=== PATIENT | male | born 1960 | race Caucasian/White ===

== ENCOUNTER → 2016-09-10 | Outpatient (CLI) | payer BC, OTHER ==
[2016-09-10 08:15] LABS: ABSOLUTE BASOPHILS # (AUTO) 0.1 10^3/uL (0.0-0.2); ABSOLUTE EOSINOPHILS # (AUTO) 0.3 10^3/uL (0.0-0.6); ABSOLUTE LYMPHOCYTES (AUTO) 1.5 10^3/uL (0.5-4.7); ABSOLUTE MONOCYTES (AUTO) 1.3 10^3/uL (0.1-1.4); ABSOLUTE NEUT (AUTO) 9.6 10^3/uL (1.7-8.2); BASOPHILS % (AUTO) 0.5 % (0-2); EOSINOPHILS % (AUTO) 2.3 % (0-6); HEMATOCRIT 44.3 % (37.9-51.0); HEMOGLOBIN 14.9 g/dL (13.5-17.0); HGB HCT DIFFERENCE 0.4; LYMPHOCYTES % (AUTO) 11.9 % (13-45); MEAN CORPUSCULAR HEMOGLOBIN 32.4 pg (27.0-33.4); MEAN CORPUSCULAR HGB CONC 33.7 g/dL (32.0-36.0); MEAN CORPUSCULAR VOLUME 96 fl (80-97); MONOCYTES % (AUTO) 10.5 % (3-13); SEGMENTED NEUTROPHILS % (AUTO) 74.8 % (42-78); WHITE BLOOD COUNT 12.8 10^3/uL (4.0-10.5)
[2016-09-10 08:25] LABS: APPEARANCE,URINE CLEAR; BILIRUBIN,URINE NEGATIVE (NEGATIVE); GLUCOSE, URINE NEGATIVE (NEGATIVE); KETONES,URINE NEGATIVE (NEGATIVE); LEUKOCYTE ESTERASE,URINE NEGATIVE (NEGATIVE); NITRITE,URINE NEGATIVE (NEGATIVE); PROTEIN,URINE NEGATIVE (NEGATIVE); URINE SPECIFIC GRAVITY 1.013; UROBILINOGEN,URINE NEGATIVE mg/dL (<2.0)
== END ==
LOC: LAB 13:53 → EDSTATUS 09-12 09:15
PROVIDERS: ATTEND Podiatrist Foot & Ankle Surgery
DX: M20.12 Hallux valgus (acquired), left foot (principal)
CPT/HCPCS: 36415; 81001; 85025

== ENCOUNTER → 2016-09-18 | Outpatient (CLI) | payer OTHER ==
[2016-09-18 10:35] LABS: ABSOLUTE EOSINOPHILS # (AUTO) 0.2 10^3/uL (0.0-0.6); ABSOLUTE LYMPHOCYTES (AUTO) 1.3 10^3/uL (0.5-4.7); ABSOLUTE NEUT (AUTO) 4.4 10^3/uL (1.7-8.2); BASOPHILS % (AUTO) 0.5 % (0-2); EOSINOPHILS % (AUTO) 2.6 % (0-6); HEMATOCRIT 43.2 % (37.9-51.0); HEMOGLOBIN 14.7 g/dL (13.5-17.0); HGB HCT DIFFERENCE 0.9; LYMPHOCYTES % (AUTO) 19.3 % (13-45); MEAN CORPUSCULAR HEMOGLOBIN 33.3 pg (27.0-33.4); MEAN CORPUSCULAR VOLUME 98 fl (80-97); MONOCYTES % (AUTO) 13.8 % (3-13); RED CELL DISTRIBUTION WIDTH 13.9 % (11.5-14.0); SEGMENTED NEUTROPHILS % (AUTO) 63.8 % (42-78); WHITE BLOOD COUNT 6.9 10^3/uL (4.0-10.5)
== END ==
LOC: OD 09:47
PROVIDERS: ATTEND Podiatrist Foot & Ankle Surgery
DX: Z01.812 Encounter for preprocedural laboratory examination (principal); M20.12 Hallux valgus (acquired), left foot
CPT/HCPCS: 36415; 85025

== ENCOUNTER 2016-09-26 07:58 | Day surgery (SDC) | payer OTHER ==
[~2016-09-26 07:58] MED LIST: BUPIVACAINE HCL 0.5 % INJ/PF 30 ML SDV ONE; CEFAZOLIN 1 GM/D5W RTU 1 GM/50 ML RTUPB IV PRN; DEXAMETHASONE SOD PHOS INJ 10 MG/1 ML VIAL ONE; FENTANYL CITRATE INJ/PF 100 MCG/2 ML AMPUL ONE; LIDOCAINE 2% INJ (20 MG/ML) 20 ML MDV ONE; LIDOCAINE 2% INJ-PF (20 MG/ML) 10 ML AMPUL ONE; MIDAZOLAM 2 MG/2 ML INJ ONE; ONDANSETRON HCL INJ/PF 4 MG/2 ML SDV ONE; PROPOFOL INJ 200 MG/20 ML VIAL IV ONE; RINGERS SOLUTION,LACTATED 1,000 ML IV PRN
[2016-09-26] MEDS ORDERED: MIDAZOLAM 2 MG/2 ML INJ ONE (09:02)
[2016-09-26] MEDS ORDERED: PROPOFOL INJ 200 MG/20 ML VIAL IV ONE (09:12)
[2016-09-26] MEDS ORDERED: EPHEDRINE SULFATE INJ 50 MG/1 ML AMPULE ONE (09:50)
[2016-09-26] MEDS ORDERED: CEFAZOLIN 1 GM/D5W RTU 1 GM/50 ML RTUPB IV ONE (11:33)
[2016-09-26] MEDS ORDERED: NORMAL SALINE FOR INHALATION 5 ML VIAL.NEB ONE (12:20)
[2016-09-26] MEDS ORDERED: RACEPINEPHRINE HCL 2.25% NEB 0.5 ML AMPUL NEB ONE (12:20)
[2016-09-26] MEDS: FENTANYL CITRATE INJ/PF 100 MCG/2 ML AMPUL ONE ×2 (12:55→13:08)
--- NOTE | 2016-09-26 13:51 | RADIOLOGY REPORT (SQ) ---
EXAM DESCRIPTION: CHEST PA/LATERAL COMPLETED DATE/TIME: 09/26/2016 1:42 pm REASON FOR STUDY: POST-OP R/O ASPIRATION/PNEUMONIA COMPARISON: CT chest 10/16/2015 Two-view chest 05/30/2014 EXAM PARAMETERS: NUMBER OF VIEWS: two views TECHNIQUE: Digital Frontal and Lateral radiographic views of the chest acquired. RADIATION DOSE: NA LIMITATIONS: none FINDINGS: LUNGS AND PLEURA: No opacities, masses or pneumothorax. No pleural effusion. MEDIASTINUM AND HILAR STRUCTURES: No masses or contour abnormalities. HEART AND VASCULAR STRUCTURES: Heart normal size. No evidence for failure. BONES: No acute findings. HARDWARE: None in the chest. OTHER: No other significant finding. IMPRESSION: NO SIGNIFICANT RADIOGRAPHIC FINDING IN THE CHEST. TECHNICAL DOCUMENTATION: JOB ID: [id number] [employer]- All Rights Reserved
--- NOTE | 2016-09-26 16:00 | RADIOLOGY REPORT (SQ) ---
EXAM DESCRIPTION: FOOT LEFT 2 VIEWS COMPLETED DATE/TIME: 09/26/2016 3:33 pm REASON FOR STUDY: LT FOOT OPEN WEDGE OSTEOTOMY M20.12 HALLUX VALGUS (ACQUIRED), LEFT FOOT COMPARISON: None. FLUOROSCOPY TIME: 0.09 seconds 2 images saved to PACS. TECHNIQUE: Intra-operative images acquired during surgical procedure to evaluate progress. NUMBER OF IMAGES: 2 image LIMITATIONS: None. FINDINGS: Fluoroscopic images were obtained during osteotomy involving the 1st digit and 1st metatar neftali of the left foot IMPRESSION: IMAGE(S) OBTAINED DURING PROCEDURE. COMMENT: Quality ID [id number]: Final reports for procedures using fluoroscopy that document radiation exp osure indices, or exposure time and number of fluorographic images (if radiation exposure indices are not available) Please consult full operative report of the attending physician for description of the procedure. TECHNICAL DOCUMENTATION: JOB ID: [id number] [employer]- All Rights Reserved
--- NOTE | 2016-09-26 16:02 | RADIOLOGY REPORT (SQ) ---
EXAM DESCRIPTION: NO CHG FLUORO COMPLETE DATE/TIME: 09/26/2016 3:33 pm REASON FOR STUDY: LT FOOT OPEN WEDGE OSTEOTOMY M20.12 HALLUX VALGUS (ACQUIRED), LEFT FOOT FINDINGS: Please see combined report for performance of procedure and radiologic supervision and int erpretation. IMPRESSION: Please see combined report for performance of procedure and radiologic supervision and i nterpretation.
--- NOTE | 2016-10-17 10:42 | SURGICARE OPERATIVE REPORT E ---
[facility] Operative Report NAME: TARAS JAMESON AGE: 56Y DATE OF SURGERY: 09/26/2016 ROOM: NOTE: I want this to be noted for the record that this is my second dictation on this operation report. PREOPERATIVE DIAGNOSIS: Severe hallux abductovalgus deformity, left foot. POSTOPERATIVE DIAGNOSIS: Severe hallux abductovalgus deformity, left foot. SURGEON: CALVIN CASTILLO D.P.M. PROCEDURES: OWO base, 1st metatarsal, Left hallux CWO base proximal Phalanx, Left Hallux FINDINGS: Severe dislocation of the first metatarsophalangeal joint with hypertrophy of the medial eminence of the head of the first metatarsal. Articular facets were relatively in a good condition with very minimal erosion of the articular cartilage. The left hallux was also in an advanced valgus rotation. Intraoperative findings were confirmed clinically and radiographically. PROCEDURE: With the patient laying in a dorsal recumbent position, the left foot and leg were prepped and draped in the usual standard sterile orthopedic manner after local anesthesia was administered which was a total ankle block. After the anesthetic effect was accomplished the left leg was elevated for approximately 2 minutes of time and the left ankle pneumatic tourniquet was inflated up to 250 mmHg after the blood was exsanguinated from the left foot. The left leg was brought to the level of the table. Attention was directed right over the first metatarsophalangeal joint. A curvilinear incision was placed right over the joint. The initial incision was deepened. The superficial and deep subcutaneous tissues were dissected via sharp and blunt dissection. This dissection was carried until the capsular structures were brought into the surgical field. By this time all bleeders were ligated, all vital structures were identified and protected from surgical trauma. Next an L inverted capsulotomy was performed over the first metatarsophalangeal joint with the long arm of the L inverted capsulotomy being medial and adjacent to the extensor hallucis longus tendon and the short arm running right over the joint in a medial inferior direction. Capsular and periosteal structures were dissected off bone. The head of the first metatarsal was brought into the surgical field and the hypertrophic portion of the medial eminence was resected and then the head was remodeled to a more normal anatomical configuration. At this point the skin incision was extended all the way down to the junction of the first metatarsal base with the medial cuneiform. Again, superficial and deep subcutaneous tissues were dissected via blunt and sharp dissection and the periosteal tissue at the base of the first metatarsal was brought into the surgical field. At this point the periosteal tissue was dissected off bone and the base of the first metatarsal was visualized. The open wedge osteotomy was performed at this area. This was an oblique osteotomy with the obliquity from medial proximal to lateral distal direction. The obliquity was about 45 degrees to the long axis of the first metatarsal. The measurements were transferred to the bone in order to create the orientation of the osteotomy cut. It was 1.5 cm from the joint on the medial side of the cortex and 0.5 cm from the joint on the lateral cortex. Next, the osteotomy was performed to dorsoplantar direction after the guiding pin was introduced the medial two thirds into the bone from dorsoplantar direction. Once the osteotomy was completed the attempt was started to open the osteotomy in order to derotate the first metatarsal laterally. Several attempts were made to create the open wedge and these attempts continued until we could open the wedge in order to fit a 5-mm wedge plate. Once the plate was introduced into the osteotomy it was anchored down with 4 screws, 2 distal to the open wedge and 2 proximal to the open wedge. All holes were predrilled with a 2-mm drill bit and the screws were 3 mm in diameter. The 2 screws introduced on the proximal aspect were 30 mm in length and those were locking screws. The screws introduced on the distal aspect of the open wedge were also locking screws. The proximal to the wedge screw was 14 mm in length. The distal screw to the osteotomy was 10 mm in length. Evaluation of the osteotomy was performed. It was a very solid fixation at this point. Next, attention was directed to the left hallux which continued to be still in a valgus rotation and the decision was made to perform an Darryl osteotomy at the base of the proximal phalanx. The first cut was parallel to the long axis of the proximal phalanx. The second cut was angulated in relationship to the first. The angulation was sufficient by closing the osteotomy to derotate the hallux into a more rectus position. After the osteotomy was completed and the closing wedge osteotomy was performed, it was fixated with 8-mm EV clip-shaped fixator. The fixation was extremely satisfactory at this point. Next, the surgical areas were irrigated with copious amounts of sterile saline solution. The open wedge at the base of the first metatarsal was packed with Vitoss 1.2 synthetic bone graft. After that the capsular structures around the first metatarsophalangeal joint were closed with 2-0 Vicryl. The deep and superficial tissues to the proximal aspect of the surgical incision were closed with 3-0 Vicryl. The subcutaneous tissues deep to superficial over the osteotomy performed at the base of the proximal phalanx were closed with 3-0 Vicryl. The skin edges were repositioned and anchored down with 4-0 nylon continuous interlocked stitch. A Betadine compression dressing was applied around the surgical area and this followed with [id number] posterior splint. This patient tolerated the procedures well and left the operating room with stable vital signs and in good condition. The patient was taken to the recovery room alert, conscious and oriented. There are no permanent disabilities at this time. The patient was discharged home with postoperative instructions. The patient was allowed to resume normal dieting and to be totally nonweightbearing, ambulating only with crutches. DICTATING PHYSICIAN: CALVIN CASTILLO D.P.M. [id number] PHY#: [id number] ID: [id number] JOB#: [id number] ACCT: [id number] cc:CALVIN CASTILLO D.P.M. > MTDD
== END 2016-09-26 13:55 | disposition home or self-care (01) ==
LOC: SC 07:58
PROVIDERS: ATTEND Podiatrist Foot & Ankle Surgery
PROC: 0QSR04Z Reposition Left Toe Phalanx with Internal Fixation Device, Open Approach (ICD-10-PCS; 2016-09-26)
PROC: 0QSP04Z Reposition Left Metatarsal with Internal Fixation Device, Open Approach (ICD-10-PCS; principal; 2016-09-26 10:15)
DX: M20.12 Hallux valgus (acquired), left foot (principal); J45.909 Unspecified asthma, uncomplicated; K21.9 Gastro-esophageal reflux disease without esophagitis; I10 Essential (primary) hypertension; M10.9 Gout, unspecified; F41.9 Anxiety disorder, unspecified; Z88.8 Allergy status to other drugs, medicaments and biological substances; Z79.899 Other long term (current) drug therapy
CPT/HCPCS: 71020; 73620; 28296; 28298; C1713; J2250; J3490 ×5; J0690; J3010; J2405; J2704; J1100; 01480

== ENCOUNTER 2017-04-22 15:46 | Emergency (ER) | payer OTHER ==
--- NOTE | 2017-04-22 16:30 | ER Document Report ---
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 He was sober for 4 months, but relapsed a few days ago. He drinks about 1/5 of vodka every night and when he is drinking, he is telling his that he is having thoughts of hurting himself. He took 5 Valium last night, but he is unsure if it was a suicide attempt or because he wanted to intensify the effects of his alcohol. Patient currently denies any suicidal ideation. His outpatient therapist is switching him from Lexapro to another anti-depressant. Patient denies ever withdrawing from alcohol and denies tremors, chest pain, shortness of breath, seizures, homicidal ideation, hallucinations, fevers or rash. TRAVEL OUTSIDE OF THE [place] IN LAST 30 DAYS: No - Related Data Allergies/Adverse Reactions: snake bite antivenom Adverse Reaction (Intermediate, Uncoded 05/30/14 19:08) Hives Past Medical History - General Information source: Patient - Social History Smoking Status: Unknown if Ever Smoked Frequency of alcohol use: Heavy Drug Abuse: None Family History: Reviewed & Not Pertinent - Past Medical History Cardiac Medical History: Reports: Hx Hypertension - MEDS Denies: Hx Heart Attack Pulmonary Medical History: Denies: Hx Asthma Neurological Medical History: Denies: Hx Cerebrovascular Accident, Hx Seizures GI Medical History: Reports: Hx Hiatal Hernia, Hx Ulcer - CHRON'S. Denies: Hx Hepatitis Infectious Medical History: Denies: Hx Hepatitis Past Surgical History: Reports: Hx Bowel Surgery. Denies: Hx Open Heart Surgery , Hx Pacemaker - Immunizations Hx Diphtheria, Pertussis, Tetanus Vaccination: No Review of Systems - Review of Systems Notes: REVIEW OF SYSTEMS: CONSTITUTIONAL: -fevers, -chills EENT: -eye pain, -difficulty swallowing, -nasal congestion CARDIOVASCULAR:-chest pain, -syncope. RESPIRATORY: -cough, -SOB GASTROINTESTINAL: -abdominal pain, - nausea, -vomiting, -diarrhea GENITOURINARY: -dysuria, -hematuria MUSCULOSKELETAL: -back pain, -neck pain SKIN: -rash or skin lesions. HEMATOLOGIC: -easy bruising or bleeding. LYMPHATIC: -swollen, enlarged glands. NEUROLOGICAL: -altered mental status or loss of consciousness, -headache, - neurologic symptoms PSYCHIATRIC: -anxiety, +depression. ALL OTHER SYSTEMS REVIEWED AND NEGATIVE. Physical Exam - Vital signs Vitals: Temp Pulse Resp BP Pulse Ox 98.5 F 57 L 16 150/92 H 95 04/22/17 15:51 04/22/17 15:51 04/22/17 15:51 04/22/17 15:51 04/22/17 15:51 - Notes Notes: PHYSICAL EXAMINATION: GENERAL: Well-appearing, well-nourished and in no acute distress. HEAD: Atraumatic, normocephalic. EYES: Pupils equal round and reactive to light, extraocular movements intact, sclera anicteric, conjunctiva are normal. ENT: nares patent, oropharynx clear without exudates. Moist mucous membranes. NECK: Normal range of motion, supple without lymphadenopathy LUNGS: Breath sounds clear to auscultation bilaterally and equal. No wheezes rales or rhonchi. HEART: Regular rate and rhythm without murmurs ABDOMEN: Soft, nontender, normoactive bowel sounds. No guarding, no rebound. No masses appreciated. EXTREMITIES: Normal range of motion, no pitting or edema. No cyanosis. NEUROLOGICAL: Cranial nerves grossly intact. Normal speech, normal gait. Normal sensory and motor exams. PSYCH: Normal mood, normal affect. SKIN: Warm, Dry, normal turgor, no rashes or lesions noted. Course - Re-evaluation Re-evalutation: Patient has never had any alcohol withdrawal seizures, but will monitor due to his daily drinking. Mental health evaluate patient and there is no criteria for IVC at this time. Will watch patient overnight and help him obtain voluntary alcohol detox. Patient is comfortable with this plan. - Vital Signs Vital signs: Temp Pulse Resp BP Pulse Ox 98.5 F 57 L 16 150/92 H 95 04/22/17 15:51 04/22/17 15:51 04/22/17 15:51 04/22/17 15:51 04/22/17 15:51 - Laboratory Result Diagrams: 04/22/17 16:44 04/22/17 16:44 Laboratory results interpreted by me: 04/22/17 04/22/17 16:44 16:44 RDW 14.9 H Alkaline Phosphatase 130 H Salicylates < 1.0 L Acetaminophen < 10 L Discharge - Discharge Clinical Impression: Alcohol abuse, Depressed mood Condition: Stable Disposition: PSYCH HOSP/UNIT Additional Instructions: ACUTE ALCOHOL INTOXICATION and ALCOHOL ABUSE: Your evaluation revealed very high levels of alcohol. You can from drinking a large amount of alcohol rapidly! Further, there's the risk of falls , traffic accidents, and fights. A high portion (about 50 percent) of the serious injuries seen in hospital emergency rooms are caused by alcohol. Alcohol overdosage is usually due to an underlying emotional or psychiatric problem. You may benefit from counselling. If "binge" drinking is an ongoing problem for you, or if you drink ANY AMOUNT of alcohol EVERY day, you most likely have a tendency to alcoholism. You should avoid alcohol totally. We can refer you for treatment. Persons with alcohol problems are often also prone to other addictions -- you should discuss any use of medications or drugs with the doctor. You should be watched at home for the next several hours by someone who has not been drinking. Get extra fluids for the next 24 hours. Call the doctor if there is repeated vomiting, increasing headache, decreasing level of alertness, or any other worsening. CHRONIC ALCOHOLISM and ALCOHOL ABUSE: Your evaluation reveals evidence of chronic alcoholism, an addiction to alcohol. The tendency to alcoholism may be inherited. Chronic use of alcohol weakens muscles, causes fatty deposits in the liver , damages the stomach, makes you more prone to infections, and can cause defects in unborn children. In the long run, brain atrophy and cirrhosis of the liver result. You are also at greater risk for certain types of cancer, such as cancer of the mouth, throat, stomach, and liver. Counselling services are available to help you. In-hospital treatment programs often help. Support groups such as Alcoholics Anonymous can be very useful in beating this addiction. Your physician can make a referral for you. As alcoholics often are prone to other addictions, you should discuss your use of any other medications with the doctor. FOLLOW-UP CARE: If you have been referred to a physician for follow-up care, call the physician s office for an appointment as you were instructed or within the next two days. If you experience worsening or a significant change in your symptoms, notify the physician immediately or return to the Emergency Department at any time for re-evaluation. Referrals: [facility] [Outside] - Follow up as needed
[2017-04-22 16:52] LABS: APPEARANCE,URINE CLEAR; BILIRUBIN,URINE NEGATIVE (NEGATIVE); GLUCOSE, URINE NEGATIVE (NEGATIVE); KETONES,URINE NEGATIVE (NEGATIVE); LEUKOCYTE ESTERASE,URINE NEGATIVE (NEGATIVE); NITRITE,URINE NEGATIVE (NEGATIVE); PROTEIN,URINE NEGATIVE (NEGATIVE); URINE SPECIFIC GRAVITY 1.008; UROBILINOGEN,URINE NEGATIVE mg/dL (<2.0)
[2017-04-22 16:57] LABS: ABSOLUTE BASOPHILS # (AUTO) 0.1 10^3/uL (0.0-0.2); ABSOLUTE EOSINOPHILS # (AUTO) 0.2 10^3/uL (0.0-0.6); ABSOLUTE LYMPHOCYTES (AUTO) 1.6 10^3/uL (0.5-4.7); ABSOLUTE MONOCYTES (AUTO) 0.8 10^3/uL (0.1-1.4); ABSOLUTE NEUT (AUTO) 6.1 10^3/uL (1.7-8.2); BASOPHILS % (AUTO) 0.6 % (0-2); EOSINOPHILS % (AUTO) 2.8 % (0-6); HEMATOCRIT 41.1 % (37.9-51.0); HEMOGLOBIN 14.1 g/dL (13.5-17.0); HGB HCT DIFFERENCE 1.2; LYMPHOCYTES % (AUTO) 17.6 % (13-45); MEAN CORPUSCULAR HEMOGLOBIN 31.9 pg (27.0-33.4); MEAN CORPUSCULAR HGB CONC 34.4 g/dL (32.0-36.0); MEAN CORPUSCULAR VOLUME 93 fl (80-97); MONOCYTES % (AUTO) 9.3 % (3-13); RED BLOOD COUNT 4.43 10^6/uL (4.35-5.55); RED CELL DISTRIBUTION WIDTH 14.9 % (11.5-14.0); SEGMENTED NEUTROPHILS % (AUTO) 69.7 % (42-78); WHITE BLOOD COUNT 8.8 10^3/uL (4.0-10.5)
[2017-04-22 17:19] LABS: ALANINE AMINOTRANSFERASE 35 U/L (21-72); ALBUMIN 4.1 g/dL (3.5-5.0); ALKALINE PHOSPHATASE 130 U/L (38-126); ANION GAP 10 (5-19); ASPARTATE AMINO TRANSFERASE 27 U/L (17-59); BILIRUBIN,DIRECT 0.1 mg/dL (0.0-0.4); BILIRUBIN,TOTAL 0.4 mg/dL (0.2-1.3); BLOOD UREA NITROGEN 15 mg/dL (7-20); CALCIUM 9.4 mg/dL (8.4-10.2); CARBON DIOXIDE 28 mmol/L (22-30); CHLORIDE 102 mmol/L (98-107); CREATININE RESULT 1.06 mg/dL (0.52-1.25); GLUCOSE 94 mg/dL (75-110); POTASSIUM 3.9 mmol/L (3.6-5.0); SODIUM 140.4 mmol/L (137-145)
[2017-04-22 17:24] LABS: URINE BARBITURATES SCREEN NEGATIVE; URINE METHADONE SCREEN NEGATIVE; URINE OPIATES LOW NEGATIVE; URINE PHENCYCLIDINE SCREEN NEGATIVE
[2017-04-22 17:25] LABS: ALCOHOL < 10 mg/dL (NONE DETECTED)
[2017-04-22] MEDS ORDERED: ESCITALOPRAM OXALATE 10 MG TABLET PO ONE (17:39)
--- NOTE | 2017-04-22 18:32 | EKG REPORT ---
SEVERITY:- NORMAL ECG - SINUS RHYTHM : Confirmed by: Orion Thompson MD 22-Apr-2017 18:31:24
--- NOTE | 2017-04-22 18:49 | RADIOLOGY REPORT (SQ) ---
EXAM DESCRIPTION: FOOT LEFT COMPLETE COMPLETED DATE/TIME: 04/22/2017 6:36 pm REASON FOR STUDY: left foot swelling, hardware loose? COMPARISON: 09/26/2016 NUMBER OF VIEWS: Three views. TECHNIQUE: AP, lateral and oblique radiographic images acquired of the left foot. LIMITATIONS: None. FINDINGS: The plate and screw fixation of the 1st metatarsal shows a fractured screw in the 2nd posi tion and the 1st position screw has backed out approximately 6 mm from the plate surface compared to the prior study. The 2 distal screws on the distal side of the partial union 1st metatarsal fracture site are intact. The bone staple in the proximal phalanx of the great toe is intact. No acute frac ture. OTHER: No other significant finding. IMPRESSION: The plate and screw fixation of the left 1st metatarsal shows a fractured screw in the 2 nd position and the 1st position screw has backed out approximately 6 mm from the plate surface beatriz red to the prior study. The 2 distal screws on the distal side of the partial union 1st metatarsal f racture site are intact. The bone staple in the proximal phalanx of the great toe is intact. No acute fracture. TECHNICAL DOCUMENTATION: JOB ID: [id number] [employer]- All Rights Reserved
[2017-04-22] MEDS: IBUPROFEN 600 MG TABLET PO PRN ×2 (19:27→23:47)
[2017-04-22] MEDS ORDERED: VENLAFAXINE HCL 37.5 MG CAP.SR.24H PO SCH (22:00)
--- NOTE | 2017-04-23 09:39 | PSYCHOLOGICAL NOTE ---
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 He was sober for 4 months, but relapsed a few days ago. He drinks about 1/5 of vodka every night and when he is drinking, he is telling his that he is having thoughts of hurting himself. He took 5 Valium last night, but he is unsure if it was a suicide attempt or because he wanted to intensify the effects of his alcohol. Patient currently denies any suicidal ideation. His outpatient therapist is switching him from Lexapro to another anti-depressant. Clinician received a phone call from [facility] to notify clinician of patient coming to [facility]. Patient is an alcoholic who had previously achieve sobriety but relapsed. Patient had an episode while drinking the previous night disclosing that he if he had a gun he would have killed himself and his family. They are concerned the patient does have weapons in the home. Clinician spoke with patient and patient's , Nicole. Patient's stated at bedside at patient's request. Patient disclosed he came to [facility] because [facility]. He disclosed that he has been drinking again and when he drinks he normally has suicidal thoughts. He continued disclosed that last night he he actually had homicidal thoughts in addition. Patient stated that he told the providers at the [facility] because he knew he needed to get back into treatment. He states that IOP helped him extensively last time however it does not start until after the holidays and the [facility] providers were hoping he would go to detox. Patient confirms that he did have thoughts of using a gun to kill himself and his family last night however did not have access to weapons. Patient continued disclosed that his brother now has possession of all his weapons. Patient's Nicole confirm the patient only has suicidal thoughts normally when drinking. Patient did inform her and his providers of his thoughts last night of shooting himself and his family however at no time did he have access to his weapons. The weapons have since been completely removed from the home. She discloses that she sometimes enables the patient with his drinking because "it so hard." She knows this is wrong and is personally going to individual counseling to help with the situation. She continued to report that the patient never has suicidal or homicidal thoughts when he is sober. Patient is alert and orientated to person place time and circumstance. Mood is euthymic with congruent affect. Patient endorses suicidal homicidal thoughts with no means. Patient additionally called and made his appointments the next [facility] with the [facility] to report his thoughts once sober. Delusions are absent and behaviors congruent with intact reality based presentation i.e. organized, linear, rational thinking. Patient discloses mild headache disclosing that it is about the time that he has been drinking. Conversational speech was within normal rate, tone and prosody. Eye contact was well-maintained. Intellectual abilities appear to be within the average range. Attention and concentration are currently good. Insight, judgment, impulse control are currently good however poor when under the influence. 309.81 (F43.10) posttraumatic stress disorder per history provided by patient and family 291.81 (F10.239) alcohol withdrawal; without perceptual disturbances Impression\\plan: Patient is recommended for overnight mental health hold. Patient discloses wanting assistance with going to detox so he can go to intensive [facility] the [facility]. Patient and feel that he will be unable to make it through the evening without drinking. Patient only has thoughts of suicide and homicide when drunk. Patient's plan was not feasible since the patient knew he did not have any access to his weapons. Upon sobriety he immediately ensured additional measures were in place and had his weapons removed from the home completely and made appointments [facility] the [facility] for [facility]. At this time the patient does not meet IVC criteria per [place] GS 122C. Patient will be held overnight in assisted with possible further inpatient substance abuse treatment in the morning. Dr. Giles was consulted and the care of management of this patient; attending physician is in agreement with recommendations and disposition.
--- NOTE | 2017-04-23 09:50 | PSYCHOLOGICAL NOTE ---
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 He was sober for 4 months, but relapsed a few days ago. He drinks about 1/5 of vodka every night and when he is drinking, he is telling his that he is having thoughts of hurting himself. He took 5 Valium last night, but he is unsure if it was a suicide attempt or because he wanted to intensify the effects of his alcohol. Patient currently denies any suicidal ideation. His outpatient therapist is switching him from Lexapro to another anti-depressant. Patient disclosed he is surprisingly feeling well. He states that he not had as much difficulties he thought he would be having not drinking when it comes to symptoms of withdrawal. Patient does state that he had a headache and mild shakes. Patient discussed with clinician further treatment options stating that he does not think he wants to go to detox. He states that intensive outpatient (IOP) was very successful for him last time; "I was sober for 5 months." Patient disclosed he plans to go back through the program. 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 Patient continued disclosed that he is not big on AA and does not want to do inpatient because he has heard too many "horror stories." Patient is willing to take substance abuse resource packet to have the information in case he changes his mind. Patient agrees to continue ensuring he does not have access to any of his weapons in the event of possible relapse. Patient disclosed that he knew that was not good; "that is why I called." Patient is alert and orientated to person place time and circumstance. Mood is euthymic with congruent affect. Patient endorses suicidal homicidal thoughts with no means. Patient additionally called and made [facility] once [facility]. Delusions are absent and behaviors congruent with intact reality based presentation i.e. organized, linear, rational thinking. Patient discloses mild headache disclosing that it is about the time that he has been drinking. Conversational speech was within normal rate, tone and prosody. Eye contact was well-maintained. Intellectual abilities appear to be within the average range. Attention and concentration are currently good. Insight, judgment, impulse control are currently good however poor when under the influence. 309.81 (F43.10) posttraumatic stress disorder per history provided by patient and family 291.81 (F10.239) alcohol withdrawal; without perceptual disturbances Impression\\plan: Patient is considered psychiatrically clear. The patient does not meet IVC criteria per [place] GS 122C. While patient reported suicidal and homicidal ideation patient's plan was not feasible since the patient knew he did not have access to any weapons. Upon sobriety the patient immediately took action to ensure the weapons were completely removed from his home and called the [facility] for [facility]. These actions show the patient has good insight judgment and impulse control while sober. At this time the patient is signed [facility] which will [facility] that after the holidays. The patient feels that going to detox will not be necessary because he is not having physical symptoms of withdrawal that he thought he would have to go through. Patient and his agreed to and continue ensuring the patient does not have access to any medications or weapons and does follow-up with his substance abuse treatment. Patient was provided substance abuse resource packet and medication adjustment recommendations have been. Dr. Giles was consulted and the care of management of this patient; attending physician is in agreement with recommendations and disposition.
[2017-04-23 10:16] VITALS: BP 135/83
--- NOTE | 2017-04-23 10:41 | ER Document Report ---
Doctor's Note Notes: 04/23/17 10:41 Return phone call from Dr. Cooper at this time. We will follow the patient in the office.
== END 2017-04-23 10:36 | disposition home or self-care (01) ==
LOC: ER 15:46
DX: F10.10 Alcohol abuse, uncomplicated (principal); F32.9 Major depressive disorder, single episode, unspecified; R45.851 Suicidal ideations; T84.038A Mechanical loosening of other internal prosthetic joint, initial encounter; Y79.8 Miscellaneous orthopedic devices associated with adverse incidents, not elsewhere classified; Z79.899 Other long term (current) drug therapy; I10 Essential (primary) hypertension
CPT/HCPCS: 93005; 99285; 36415; 80307 ×4; 85025; 80053; 81001; 73630; 93010; J3490

== ENCOUNTER 2017-06-05 08:20 | Day surgery (SDC) | payer OTHER ==
[~2017-06-05 08:20] MED LIST changes: -BUPIVACAINE HCL 0.5 % INJ/PF 30 ML SDV ONE; -DEXAMETHASONE SOD PHOS INJ 10 MG/1 ML VIAL ONE; -FENTANYL CITRATE INJ/PF 100 MCG/2 ML AMPUL ONE; -LIDOCAINE 2% INJ (20 MG/ML) 20 ML MDV ONE; -LIDOCAINE 2% INJ-PF (20 MG/ML) 10 ML AMPUL ONE; -MIDAZOLAM 2 MG/2 ML INJ ONE; -ONDANSETRON HCL INJ/PF 4 MG/2 ML SDV ONE; -PROPOFOL INJ 200 MG/20 ML VIAL IV ONE
[2017-06-05] MEDS ORDERED: PROPOFOL INJ 200 MG/20 ML VIAL IV ONE (10:11)
[2017-06-05] MEDS ORDERED: MIDAZOLAM 2 MG/2 ML INJ ONE (10:11)
[2017-06-05] MEDS ORDERED: FENTANYL CITRATE INJ/PF 100 MCG/2 ML AMPUL ONE (10:11)
[2017-06-05] MEDS: LIDOCAINE 2% INJ (20 MG/ML) 20 ML MDV ONE ×2 (10:37→12:12)
[2017-06-05] MEDS: BUPIVACAINE HCL 0.5 % INJ/PF 30 ML SDV ONE ×2 (10:37→12:12)
--- NOTE | 2017-06-05 12:08 | [facility] OPERATIVE REPORT E ---
[facility] Operative Report NAME: TARAS JAMESON AGE: 57Y DATE OF SURGERY: 06/05/2017 ROOM: PREOPERATIVE DIAGNOSIS: LOOSE INTERNAL FIXATOR, BASE, FIRST METATARSAL, LEFT FOOT. POSTOPERATIVE DIAGNOSIS: LOOSE INTERNAL FIXATOR, BASE, FIRST METATARSAL, LEFT FOOT. OPERATION: Removal of a loose internal fixator from a plate positioned at the base of the first metatarsal, left foot. SURGEON: CALVIN CASTILLO D.P.M. FINDINGS: Intraoperative findings indicated the following: There was an inclusion cyst formation right over the head of the loose screw which created a cushioning phenomenon between the skin and the screw. The screw was very loose, and it was about 6 mm retrograded outside of the bone. The screw was removed in total. The length of the screw was 30 mm in length, and it was 3.0 mm in diameter. There were no complications encountered. PROCEDURE: With the patient lying in the dorsal recumbent position, left foot and leg were prepped and draped in the usual standard sterile orthopedic manner after the local anesthesia was administered, which was a regional infiltration with a 50/50 mixture of 2% Xylocaine and 0.5% Marcaine. After the anesthetic effect was accomplished, the left leg was elevated for approximately 2 minutes of time, and the left ankle pneumatic tourniquet was inflated up to 250 mmHg after the blood was exsanguinated from the left foot. At this point, intraoperative x-rays were used to determine exactly the location of the screw. Once that was established, a curvilinear incision was placed right over the area. The deep and superficial tissues were dissected via blunt and sharp dissection, and at this point there was a cystic formation over the loose screw with characteristics of inclusion cyst to create a buffer zone between the painful loose fixator and the skin. At this point, the cyst lesion was ruptured and drained. The soft tissues were dissected and retracted, and the head of the screw was visualized. The screw was extremely loose, and it was removed in total. Another x-ray was obtained to document the total, complete removal of the screw. Again, this was a 30-mm-long cancellous screw with 3.0 in diameter. The left ankle pneumatic tourniquet was deflated. The surgical area was irrigated with copious amounts of sterile saline solution, and the skin edges were repositioned and anchored down with 4-0 nylon. A Betadine compression dressing was applied around the surgical foot followed with Juan David bandage and a surgical shoe. This patient tolerated procedures well, left the operating room with stable vital signs and in good condition. Patient was taken to the recovery room alert, conscious and oriented. There are no permanent disabilities anticipated at this time. The immediate postoperative recovery was also very uneventful. Patient was released home with instructions of how to take the pain medicine and the antibiotics. Patient was advised to ambulate to a minimum for the following 72 hours and to assist himself with crutches if needed. Patient to return to normal diet and to take all of his regular medications. Again, there is no permanent disability anticipated at this time. DICTATING PHYSICIAN: CALVIN CASTILLO D.P.M. [id number] PHY#: [id number] ID: [id number] JOB#: [id number] ACCT: [id number] cc:CALVIN CASTILLO D.P.M. >
--- NOTE | 2017-06-05 12:53 | RADIOLOGY REPORT (SQ) ---
EXAM DESCRIPTION: FOOT LEFT 2 VIEWS COMPLETED DATE/TIME: 06/05/2017 12:18 pm REASON FOR STUDY: LT FOOT REMOVAL INTERNAL FIXATION T84.213D BREAKDOWN OF INT FIX OF BONES OF FOOT AND TOES, SUB S92.312K DISP FX OF 1ST METATARSAL BONE, L FT, SUBS FOR FX W COMPARISON: None. NUMBER OF VIEWS: Three views. TECHNIQUE: AP, lateral and oblique radiographic images acquired of the left foot. LIMITATIONS: None. FINDINGS: MINERALIZATION: Normal. BONES: There has been interval removal of a broken screw from the 2nd position bridging partial union of a fracture the base the 1st metatarsal. The screw at the 1st position again demonstrates a back ed out position in reference to the plate. A radiopaque needle is noted pointing to the 1st position screw. The distal screws are unchanged. Staple at base of proximal phalanx noted. A 2nd image demonstrates the 1st position screw to abut the plate. JOINTS: No effusions. SOFT TISSUES: No soft tissue swelling. No foreign body. OTHER: No other significant finding. IMPRESSION: Interval removal of broken screw at site of previous internal fixation of partial union of a fracture at the base of 1st metatarsal. TECHNICAL DOCUMENTATION: JOB ID: [id number] [employer]- All Rights Reserved
--- NOTE | 2017-06-05 14:10 | RADIOLOGY REPORT (SQ) ---
EXAM DESCRIPTION: NO CHG FLUORO COMPLETE DATE/TIME: 06/05/2017 12:18 pm REASON FOR STUDY: LT FOOT REMOVAL INTERNAL FIXATION T84.213D BREAKDOWN OF INT FIX OF BONES OF FOOT AND TOES, SUB S92.312K DISP FX OF 1ST METATARSAL BONE, L FT, SUBS FOR FX W FINDINGS: Please see combined report for performance of procedure and radiologic supervision and int erpretation. IMPRESSION: Please see combined report for performance of procedure and radiologic supervision and i nterpretation.
== END 2017-06-05 12:02 | disposition home or self-care (01) ==
LOC: SC 08:20
PROVIDERS: ATTEND Podiatrist Foot & Ankle Surgery
PROC: 0QPP04Z Removal of Internal Fixation Device from Left Metatarsal, Open Approach (ICD-10-PCS; principal; 2017-06-05 09:45)
DX: Z47.2 Encounter for removal of internal fixation device (principal); I10 Essential (primary) hypertension; D64.9 Anemia, unspecified; J45.909 Unspecified asthma, uncomplicated; K21.9 Gastro-esophageal reflux disease without esophagitis; M19.90 Unspecified osteoarthritis, unspecified site; I20.9 Angina pectoris, unspecified; M10.9 Gout, unspecified; Z79.899 Other long term (current) drug therapy
CPT/HCPCS: 73620; 20680; J2250; J3490 ×2; J0690; J3010; J2704; 01480

== ENCOUNTER 2017-10-26 12:48 | Observation (INO) | payer OTHER ==
--- NOTE | 2017-10-26 13:21 | ER Document Report ---
ED Medical Screen (RME) - General Chief Complaint: Chest Pain Stated Complaint: CHEST PAIN Time Seen by Provider: 10/26/17 13:15 Notes: 57-year-old male patient past history anxiety, depression, PTSD, EtOH abuse. Reports about 1215 today onset pain in the neck and ears that went into the chest and to the upper abdomen. Reports it lasted about 30 minutes, is better now. Reports this occurring 4 times in the past 6 months, had not been seen for this in the past. This time it was worse. I have greeted and performed a rapid initial assessment of this patient. A comprehensive ED assessment and evaluation of the patient, analysis of test results and completion of the medical decision making process will be conducted by additional ED providers. TRAVEL OUTSIDE OF THE [place] IN LAST 30 DAYS: No - Related Data Allergies/Adverse Reactions: trazodone Allergy (Verified 10/26/17 12:49) snake bite antivenom Adverse Reaction (Intermediate, Uncoded 10/26/17 12:49) Hives Past Medical History - Past Medical History Cardiac Medical History: Reports: Hx Hypertension - MEDS Denies: Hx Heart Attack Pulmonary Medical History: Reports: Hx Asthma - INHALER Neurological Medical History: Denies: Hx Cerebrovascular Accident, Hx Seizures Renal/ Medical History: Denies: Hx Peritoneal Dialysis GI Medical History: Reports: Hx Hiatal Hernia, Hx Ulcer - CHRON'S. Denies: Hx Hepatitis Psychiatric Medical History: Reports: Hx Depression Infectious Medical History: Denies: Hx Hepatitis Past Surgical History: Reports: Hx Bowel Surgery. Denies: Hx Open Heart Surgery , Hx Pacemaker - Immunizations Hx Diphtheria, Pertussis, Tetanus Vaccination: No Physical Exam - Vital signs Vitals: Temp Pulse Resp BP Pulse Ox 98.1 F 83 20 146/92 H 96 10/26/17 13:03 10/26/17 13:03 10/26/17 13:03 10/26/17 13:03 10/26/17 13:03 Course - Vital Signs Vital signs: Temp Pulse Resp BP Pulse Ox 98.1 F 83 20 146/92 H 96 10/26/17 13:03 10/26/17 13:03 10/26/17 13:03 10/26/17 13:03 10/26/17 13:03 Doctor's Discharge - Discharge Referrals: LOCALMD,NO [Primary Care Provider] - Follow up as needed
[2017-10-26 14:12] LABS: ABSOLUTE BASOPHILS # (AUTO) 0.1 10^3/uL (0.0-0.2); ABSOLUTE EOSINOPHILS # (AUTO) 0.2 10^3/uL (0.0-0.6); ABSOLUTE LYMPHOCYTES (AUTO) 1.5 10^3/uL (0.5-4.7); ABSOLUTE MONOCYTES (AUTO) 0.8 10^3/uL (0.1-1.4); ABSOLUTE NEUT (AUTO) 6.6 10^3/uL (1.7-8.2); BASOPHILS % (AUTO) 0.6 % (0-2); HEMATOCRIT 42.2 % (37.9-51.0); HEMOGLOBIN 14.6 g/dL (13.5-17.0); LYMPHOCYTES % (AUTO) 16.4 % (13-45); MEAN CORPUSCULAR HEMOGLOBIN 32.7 pg (27.0-33.4); MEAN CORPUSCULAR HGB CONC 34.5 g/dL (32.0-36.0); MEAN CORPUSCULAR VOLUME 95 fl (80-97); MONOCYTES % (AUTO) 8.9 % (3-13); PLATELET COUNT 285 10^3/uL (150-450); RED BLOOD COUNT 4.45 10^6/uL (4.35-5.55); RED CELL DISTRIBUTION WIDTH 14.6 % (11.5-14.0); SEGMENTED NEUTROPHILS % (AUTO) 72.1 % (42-78); TOTAL CELLS COUNTED % (AUTO) 100 %; WHITE BLOOD COUNT 9.2 10^3/uL (4.0-10.5)
--- NOTE | 2017-10-26 14:16 | RADIOLOGY REPORT (SQ) ---
EXAM DESCRIPTION: CHEST 2 VIEWS COMPLETED DATE/TIME: 10/26/2017 2:08 pm REASON FOR STUDY: Chest pain COMPARISON: 05/30/2014. EXAM PARAMETERS: NUMBER OF VIEWS: two views TECHNIQUE: Digital Frontal and Lateral radiographic views of the chest acquired. RADIATION DOSE: NA LIMITATIONS: none FINDINGS: LUNGS AND PLEURA: No opacities, masses or pneumothorax. No pleural effusion. MEDIASTINUM AND HILAR STRUCTURES: No masses or contour abnormalities. HEART AND VASCULAR STRUCTURES: Heart normal size. No evidence for failure. BONES: No acute findings. HARDWARE: None in the chest. OTHER: No other significant finding. IMPRESSION: NO ACUTE RADIOGRAPHIC FINDING IN THE CHEST. TECHNICAL DOCUMENTATION: JOB ID: [id number] [email or web address]- All Rights Reserved Reading location - IP/workstation name: [email or web address]
--- NOTE | 2017-10-26 14:25 | ER Document Report ---
ED General - General Chief Complaint: Chest Pain Stated Complaint: CHEST PAIN Time Seen by Provider: 10/26/17 13:15 Mode of Arrival: Ambulatory Information source: Patient Notes: 57-year-old male patient past history HTN presents to the ED with complaints of neck pain and chest pain. Patient states that this started about 2.5 hours ago. Lasted about 30 mintues then resolved on its own. Patient describes the pain as a pressure sensation. The chest pain is located substernally. Patient also had some epigastric discomfort. Patient states that he has had similar symptoms in the past. He states that today was more severe than the previous episodes. Patient has not followed up with anyone for these symptoms. Patient states that he has a history of hypertension but denies any hyperlipidemia, diabetes, smoking. He states that he does have a family history of coronary artery disease/ID. Patient denies any recent stress test. Patient denies any stent placement. Patient also denies any recent travel, recent surgery, history of DVT or PE, calf pain, hormone use, history of malignancy, smoking. Patient is currently asymptomatic in the emergency department. TRAVEL OUTSIDE OF THE [place] IN LAST 30 DAYS: No - HPI Onset: This afternoon Onset/Duration: Sudden Quality of pain: Pressure Severity: Moderate Pain Level: Denies Associated symptoms: None Exacerbated by: Denies Relieved by: Denies Similar symptoms previously: Yes Recently seen / treated by doctor: No - Related Data Allergies/Adverse Reactions: trazodone Allergy (Verified 10/26/17 12:49) snake bite antivenom Adverse Reaction (Intermediate, Uncoded 10/26/17 12:49) Hives Past Medical History - General Information source: Patient - Social History Smoking Status: Never Smoker Frequency of alcohol use: Heavy Drug Abuse: None Family History: CAD Patient has suicidal ideation: No Patient has homicidal ideation: No - Past Medical History Cardiac Medical History: Reports: Hx Hypertension - MEDS Denies: Hx Heart Attack Pulmonary Medical History: Reports: Hx Asthma - INHALER Neurological Medical History: Denies: Hx Cerebrovascular Accident, Hx Seizures Renal/ Medical History: Denies: Hx Peritoneal Dialysis GI Medical History: Reports: Hx Hiatal Hernia, Hx Ulcer - CHRON'S. Denies: Hx Hepatitis Musculoskeltal Medical History: Reports Hx Arthritis - Gout Psychiatric Medical History: Reports: Hx Depression Infectious Medical History: Denies: Hx Hepatitis Past Surgical History: Reports: Hx Abdominal Surgery - Hernia repair, Hx Bowel Surgery, Hx Orthopedic Surgery - Lt foot. Denies: Hx Open Heart Surgery, Hx Pacemaker - Immunizations Hx Diphtheria, Pertussis, Tetanus Vaccination: No Review of Systems - Review of Systems Constitutional: No symptoms reported EENT: No symptoms reported Cardiovascular: Chest pain Respiratory: No symptoms reported Gastrointestinal: No symptoms reported Musculoskeletal: No symptoms reported Skin: No symptoms reported Neurological/Psychological: No symptoms reported -: Yes All other systems reviewed and negative Physical Exam - Vital signs Vitals: Temp Pulse Resp BP Pulse Ox 98.1 F 83 20 146/92 H 96 10/26/17 13:03 10/26/17 13:03 10/26/17 13:03 10/26/17 13:03 10/26/17 13:03 Interpretation: Normal - Notes Notes: PHYSICAL EXAMINATION: GENERAL: Well-appearing, well-nourished and in no acute distress. HEAD: Atraumatic, normocephalic. EYES: Pupils equal round and reactive to light, extraocular movements intact, sclera anicteric, conjunctiva are normal. ENT: Nares patent, oropharynx clear without exudates. Moist mucous membranes. NECK: Normal range of motion, supple without lymphadenopathy LUNGS: Breath sounds clear to auscultation bilaterally and equal. No wheezes rales or rhonchi. HEART: Regular rate and rhythm without murmurs ABDOMEN: Soft, nontender, nondistended abdomen. No guarding, no rebound. No masses appreciated. Musculoskeletal: Normal range of motion, no pitting or edema. No cyanosis. NEUROLOGICAL: Cranial nerves grossly intact. Normal speech, normal gait. Normal sensory, motor exams PSYCH: Normal mood, normal affect. SKIN: Warm, Dry, normal turgor, no rashes or lesions noted. Course - Re-evaluation Re-evalutation: 10/26/17 14:25 Heart score of 3. Patient asymptomatic. Troponin and EKG are WNL. I discussed results with the patient. He wants admission for cardiac rule out as he has a strong family hx of ID. I contacted the hospitalist for admission. Admission accepted. 10/26/17 15:23 - Vital Signs Vital signs: Temp Pulse Resp BP Pulse Ox 98.1 F 83 20 146/92 H 98 10/26/17 13:03 10/26/17 13:03 10/26/17 13:03 10/26/17 13:03 10/26/17 15:16 - Laboratory Result Diagrams: 10/26/17 13:55 10/26/17 13:55 Laboratory results interpreted by me: 10/26/17 10/26/17 13:55 13:55 RDW 14.6 H BUN 23 H AST 74 H ALT 121 H Alkaline Phosphatase 130 H Creatine Kinase 176 H - EKG Interpretation by Me Additional EKG results interpreted by me: 10/26/17 14:24 EKG: Ventricular rate 78, as needed of 168, QRS duration 88, QTc 470, sinus rhythm, no ischemic changes. Discharge - Discharge Clinical Impression: Chest pain Qualifiers: Chest pain type: unspecified Qualified Code(s): R07.9 - Chest pain, unspecified Condition: Good Disposition: ADMITTED OBSERVATION Admitting Provider: Hospitalist Unit Admitted: Telemetry Referrals: LOCALMD,NO [Primary Care Provider] - Follow up as needed
[2017-10-26 14:31] LABS: ALANINE AMINOTRANSFERASE 121 U/L (21-72); ALBUMIN 4.1 g/dL (3.5-5.0); ALKALINE PHOSPHATASE 130 U/L (38-126); ANION GAP 10 (5-19); ASPARTATE AMINO TRANSFERASE 74 U/L (17-59); BILIRUBIN,DIRECT 0.4 mg/dL (0.0-0.4); BILIRUBIN,TOTAL 0.6 mg/dL (0.2-1.3); BLOOD UREA NITROGEN 23 mg/dL (7-20); CALCIUM 9.2 mg/dL (8.4-10.2); CARBON DIOXIDE 29 mmol/L (22-30); CHLORIDE 104 mmol/L (98-107); CREATINE KINASE 176 U/L (55-170); GLUCOSE 102 mg/dL (75-110); POTASSIUM 3.7 mmol/L (3.6-5.0); SODIUM 142.9 mmol/L (137-145); TOTAL PROTEIN 7.3 g/dL (6.3-8.2)
[2017-10-26] MEDS ORDERED: NITROGLYCERIN 0.4 MG/TAB 25 TAB/BOTTLE SL PRN (16:24)
[2017-10-26] MEDS ORDERED: LANSOPRAZOLE 30 MG TAB.RAP.DR PO ONE ×2 (16:32→20:45)
[2017-10-26] MEDS ORDERED: ALPRAZOLAM 0.5 MG TABLET PO PRN (16:34)
[2017-10-26] MEDS ORDERED: HYDRALAZINE HCL INJ/PF 20 MG/1 ML SDV IV PRN (16:35)
[2017-10-26] MEDS: LORAZEPAM 1 MG TABLET PO PRN ×2 (17:14→21:14)
[2017-10-26 18:20] LABS: CREATINE KINASE MB 1.95 ng/mL (<4.55)
[2017-10-26 18:25] LABS: TROPONIN I < 0.012 ng/mL
--- NOTE | 2017-10-26 21:10 | PDOC H&P ---
History of Present Illness Admission Date/PCP: 10/26/17 16:42 NO LOCALMD Patient complains of: CHEST PAIN History of Present Illness: TARAS JAMESON is a 57 year old male who presented to the ED with complaints of chest pain. He states he was sitting down at work when he began experiencing a tightness in his throat, neck, and chest at 1000 this morning. The patient states the episode of chest tightness lasted approximately 30-45 minutes and eventually resolved on it's own. The patient states he has been experiencing intermittent episodes like this for the last 6 months, and they are typically precipitated by high levels of stress, and his episodes usually occur in the morning (around 1000). The patient describes the pain as a cramping sensation in the middle of his chest, not something that is reproduced with palpation. He denies N/V, endorses intermittent palpitations, denies SOB, endorses a mild headache. PMH includes Crohn's disease, HTN, HLD, asthma, gout The patient's EKG shows NSR, no evidence of acute infarction or ischemia. Initial troponin < 0.012. CXR normal, no cardiopulmonary pathology. All other lab work benign. Upon assessment, the patient is A&O x 3. He does not appear to be in any distress. The patient denies chest pain at the time of assessment. His lungs are clear to auscultation. Heart sounds normal, no murmur, rub or gallop. Patient has a significant family history of CAD (multiple uncles and brothers suffer from CAD or have from [place]), coupled with symptoms concerning for cardiac chest pain - plan to admit the patient to the hospitalist service. Past Medical History Cardiac Medical History: Reports: Hyperlipidema, Hypertension Denies: Myocardial Infarction Pulmonary Medical History: Reports: Asthma - INHALER Neurological Medical History: Denies: Seizures GI Medical History: Reports: Crohn's Disease, Hiatal Hernia Denies: Hepatitis Musculoskeltal Medical History: Reports: Gout Psychiatric Medical History: Reports: Alcohol Dependency, Depression, General Anxiety Disorder Hematology: Denies: Anemia, Sickle Cell Disease Past Surgical History Past Surgical History: Reports: Appendectomy, Orthopedic Surgery - L foot, Tonsillectomy Denies: Pacemaker Social History Information Source: Patient Lives with: Family Smoking Status: Never Smoker Frequency of Alcohol Use: Heavy Amount of Alcoholic Beverages Per Day: 750mL Last Alcohol Use: 10/25/17 Hx Recreational Drug Use: No Drugs: None Hx Prescription Drug Abuse: No - Advance Directive Resuscitation Status: Full Code Family History Family History: CAD Parental Family History Reviewed: Yes - DM, HTN Children Family History Reviewed: NA Sibling(s) Family History Reviewed.: Yes Medication/Allergy Allergies/Adverse Reactions: trazodone Allergy (Verified 10/26/17 12:49) snake bite antivenom Adverse Reaction (Intermediate, Uncoded 10/26/17 12:49) Hives Review of Systems All systems: reviewed and no additional remarkable complaints except as stated Physical Exam Vital Signs: Temp Pulse Resp BP Pulse Ox 98.6 F 83 16 149/82 H 96 10/26/17 18:46 10/26/17 13:03 10/26/17 18:45 10/26/17 18:45 10/26/17 18:45 General appearance: PRESENT: no acute distress, well-developed, well-nourished Head exam: PRESENT: atraumatic, normocephalic Eye exam: PRESENT: conjunctiva pink, EOMI, PERRLA. ABSENT: scleral icterus Ear exam: PRESENT: normal external ear exam Mouth exam: PRESENT: moist, tongue midline Neck exam: ABSENT: carotid bruit, JVD, lymphadenopathy, thyromegaly Respiratory exam: PRESENT: clear to auscultation osvaldo. ABSENT: rales, rhonchi, wheezes Cardiovascular exam: PRESENT: RRR. ABSENT: diastolic murmur, rubs, systolic murmur Pulses: PRESENT: normal dorsalis pedis pul Vascular exam: PRESENT: normal capillary refill GI/Abdominal exam: PRESENT: normal bowel sounds, soft. ABSENT: distended, guarding, mass, organolmegaly, rebound, tenderness Rectal exam: PRESENT: deferred Extremities exam: PRESENT: full ROM. ABSENT: calf tenderness, clubbing, pedal edema Musculoskeletal exam: PRESENT: ambulatory, full ROM Neurological exam: PRESENT: alert, awake, oriented to person, oriented to place , oriented to time, oriented to situation, CN II-XII grossly intact. ABSENT: motor sensory deficit Psychiatric exam: PRESENT: appropriate affect, normal mood Skin exam: PRESENT: dry, intact, warm. ABSENT: cyanosis, rash Results Laboratory Results: 10/26/17 17:23 CK-MB (CK-2) 1.95 Troponin I < 0.012 Impressions: Chest X-Ray 10/26/17 13:19 IMPRESSION: NO ACUTE RADIOGRAPHIC FINDING IN THE CHEST. Status: Imported from PACS Assessment & Plan - Diagnosis (1) Chest pain Qualifiers: Chest pain type: unspecified Qualified Code(s): R07.9 - Chest pain, unspecified Is this a current diagnosis for this admission?: Yes Plan: Patient reports midsternal chest pain radiating to neck. Pain was relieved with rest. CXR benign. EKG shows NSR. Repeat in AM. Troponin <0.012, trend q6h x 3 Cardiology consulted, appreciate their recommendations SL Nitro for chest pain Aspirin therapy Plan to treat for atypical causes of chest pain: PPI for reflux and ativan for anxiety (2) HTN (hypertension) Qualifiers: Hypertension type: essential hypertension Qualified Code(s): I10 - Essential (primary) hypertension Is this a current diagnosis for this admission?: Yes Plan: Patient reports PMH HTN Plan to restart home medications Currently PRN IV Hydralazine for SBP > 170 (3) HLD (hyperlipidemia) Is this a current diagnosis for this admission?: Yes Plan: Patient endorses history of HLD Plan to restart home dose medication (4) Crohns disease Is this a current diagnosis for this admission?: Yes Plan: Patient endorses history of Crohn's disease Currently denies abdominal pain. Reports 2-3 weeks of frequent bowel movements - more frequent than usual Send stool sample when possible Re-start home medications (5) Gout Is this a current diagnosis for this admission?: Yes Plan: Patient endorses history of gout Currently denies flare up Plan to restart home medications (6) EtOH dependence Qualifiers: Substance use status: uncomplicated Qualified Code(s): F10.20 - Alcohol dependence, uncomplicated Is this a current diagnosis for this admission?: Yes Plan: Patient admits to drinking 1/5 liquor per day Scheduled PO thaimine and folate PRN ativan for agitation and/or ETOH withdrawal - Time Time Spent: 30 to 50 Minutes Medications reviewed and adjusted accordingly: Yes Anticipated discharge: Home Within: within 48 hours - Inpatient Certification Based on my medical assessment, after consideration of the patient's comorbidities, presenting symptoms, or acuity I expect that the services needed warrant INPATIENT care.: Yes I certify that my determination is in accordance with my understanding of Medicare's requirements for reasonable and necessary INPATIENT services [42 CFR 412.3e].: Yes Medical Necessity: Risk of Complication if Not Cared For in Hospital
[2017-10-26] MEDS: THIAMINE HCL 100 MG TABLET PO SCH (21:14)
[2017-10-26] MEDS: FOLIC ACID 1 MG TABLET PO SCH (21:15)
[2017-10-26 23:59] LABS: CREATINE KINASE MB 1.54 ng/mL (<4.55); TROPONIN I < 0.012 ng/mL
[2017-10-27 06:16] LABS: HEMATOCRIT 38.5 % (37.9-51.0); HEMOGLOBIN 13.4 g/dL (13.5-17.0); MEAN CORPUSCULAR HEMOGLOBIN 32.9 pg (27.0-33.4); MEAN CORPUSCULAR HGB CONC 34.7 g/dL (32.0-36.0); MEAN CORPUSCULAR VOLUME 95 fl (80-97); PLATELET COUNT 239 10^3/uL (150-450); RED BLOOD COUNT 4.06 10^6/uL (4.35-5.55); RED CELL DISTRIBUTION WIDTH 14.4 % (11.5-14.0); WHITE BLOOD COUNT 6.7 10^3/uL (4.0-10.5)
[2017-10-27 06:26] LABS: ANION GAP 9 (5-19); BLOOD UREA NITROGEN 23 mg/dL (7-20); CALCIUM 8.8 mg/dL (8.4-10.2); CARBON DIOXIDE 28 mmol/L (22-30); CHLORIDE 104 mmol/L (98-107); CHOLESTEROL 244.78 mg/dL (0-200); GLUCOSE 100 mg/dL (75-110); PHOSPHORUS 3.6 mg/dL (2.5-4.5); POTASSIUM 3.7 mmol/L (3.6-5.0); SODIUM 140.7 mmol/L (137-145); TRIGLYCERIDES 280 mg/dL (<150)
[2017-10-27 06:36] LABS: DIRECT LDL 111 mg/dL (<100)
[2017-10-27 06:37] LABS: CREATINE KINASE MB 1.47 ng/mL (<4.55)
[2017-10-27 06:38] LABS: TROPONIN I < 0.012 ng/mL
--- NOTE | 2017-10-27 07:55 | EKG REPORT ---
SEVERITY:- NORMAL ECG - SINUS RHYTHM : Confirmed by: Ayaka Ceballos MD 27-Oct-2017 07:54:55
--- NOTE | 2017-10-27 07:56 | EKG REPORT ---
SEVERITY:- BORDERLINE ECG - SINUS RHYTHM BORDERLINE T ABNORMALITIES, INFERIOR LEADS : Confirmed by: Ayaka Ceballos MD 27-Oct-2017 07:55:01
[2017-10-27] MEDS: ASPIRIN 81 MG TABLET, ENT COATED PO SCH (10:27)
[2017-10-27] MEDS: LORAZEPAM 1 MG TABLET PO PRN ×3 (10:31→20:54)
[2017-10-27] MEDS ORDERED: ALBUTEROL SULFATE HFA (90 MCG/PUFF) 200 PUFF/8.5 GM MDI IH PRN (11:55)
[2017-10-27] MEDS ORDERED: ALLOPURINOL 300 MG TABLET PO ONE (13:00)
[2017-10-27] MEDS ORDERED: BUDESONIDE/FORMOTEROL 160-4.5 MCG 60 PUFF/6 GM MDI IH ONE (13:00)
--- NOTE | 2017-10-27 16:38 | PDOC PROGRESS REPORT ---
Subjective Progress Note for:: 10/27/17 Subjective:: TARAS JAMSEON is a 57 y.o. M who presented to [facility] with chest pain radiating to his neck. PMH includes HTN, HLD, Crohn's disease, anxiety, depression, and daily ETOH use (approx. 750 mL). The patient was seen this morning on rounds. He is resting comfortably in bed. The patient is A&O x 3, able to answer all questions appropriately without pause. The patient denies chest pain, SOB, palpitations, back pain, or neck pain. The patient does endorse anxiety, stating he is concerned about his family history of CAD/IA and the likelihood that he himself may have heart disease. Upon assessment, lungs are clear to auscultation, normal S1S2, no murmor/rubs/gallops. The patient was seen this morning by cardiology, plan for stress test tomorrow. Reason For Visit: CHEST PAIN Physical Exam Vital Signs: Temp Pulse Resp BP Pulse Ox 97.7 F 65 16 150/89 H 98 10/27/17 11:16 10/27/17 11:16 10/27/17 11:16 10/27/17 11:16 10/27/17 11:16 Intake & Output 10/26/17 10/27/17 10/28/17 06:59 06:59 06:59 Intake Total 220 Balance 220 Weight 108.9 kg General appearance: PRESENT: no acute distress Head exam: PRESENT: atraumatic Eye exam: PRESENT: conjunctiva pink, PERRLA Mouth exam: PRESENT: moist Neck exam: PRESENT: full ROM Respiratory exam: PRESENT: clear to auscultation osvaldo, symmetrical, unlabored Cardiovascular exam: PRESENT: +S1, +S2 Pulses: PRESENT: normal radial pulses, normal dorsalis pedis pul Vascular exam: PRESENT: normal capillary refill GI/Abdominal exam: PRESENT: normal bowel sounds, soft. ABSENT: tenderness Rectal exam: PRESENT: deferred Extremities exam: PRESENT: full ROM. ABSENT: pedal edema Musculoskeletal exam: PRESENT: ambulatory, full ROM Neurological exam: PRESENT: alert, awake, oriented to person, oriented to place , oriented to time, oriented to situation Psychiatric exam: PRESENT: appropriate affect Skin exam: PRESENT: dry, intact Results Laboratory Results: 10/27/17 05:25 10/27/17 05:25 10/27/17 10/27/17 05:25 05:25 WBC 6.7 RBC 4.06 L Hgb 13.4 L Hct 38.5 MCV 95 MCH 32.9 MCHC 34.7 RDW 14.4 H Plt Count 239 Sodium 140.7 Potassium 3.7 Chloride 104 Carbon Dioxide 28 Anion Gap 9 BUN 23 H Creatinine 1.01 Est GFR ( Amer) > 60 Est GFR (Non-Af Amer) > 60 Glucose 100 Calcium 8.8 Phosphorus 3.6 Triglycerides 280 H Cholesterol 244.78 H LDL Cholesterol Direct 111 H VLDL Cholesterol 56.0 H HDL Cholesterol 85 10/26/17 10/26/17 10/27/17 17:23 23:25 05:25 CK-MB (CK-2) 1.95 1.54 1.47 Troponin I < 0.012 < 0.012 < 0.012 Impressions: Chest X-Ray 10/26/17 13:19 IMPRESSION: NO ACUTE RADIOGRAPHIC FINDING IN THE CHEST. Status: Imported from PACS Assessment & Plan - Diagnosis (1) Chest pain Qualifiers: Chest pain type: unspecified Qualified Code(s): R07.9 - Chest pain, unspecified Is this a current diagnosis for this admission?: Yes Plan: Patient reports midsternal chest pain radiating to neck. Pain was relieved with rest. CXR benign. EKG shows NSR. Serial Troponin <0.012, no longer trending Cardiology consulted, recommend stress test tomorrow morning. SL Nitro for chest pain Aspirin therapy Statin therapy Plan to treat for atypical causes of chest pain: PPI for reflux and ativan for anxiety (2) HTN (hypertension) Qualifiers: Hypertension type: essential hypertension Qualified Code(s): I10 - Essential (primary) hypertension Is this a current diagnosis for this admission?: Yes Plan: Patient reports PMH HTN Continue home dose cozaar Currently PRN IV Hydralazine for SBP > 170 (3) HLD (hyperlipidemia) Is this a current diagnosis for this admission?: Yes Plan: Patient endorses history of HLD but is not taking statin therapy Total cholesterol 244 and Triglycerides 288 Initiated atorvastatin 40 mg QHS (4) Crohns disease Is this a current diagnosis for this admission?: Yes Plan: Patient endorses history of Crohn's disease Currently denies abdominal pain. Reports 2-3 weeks of frequent bowel movements - more frequent than usual Send stool sample when possible Re-start home medications (5) Gout Is this a current diagnosis for this admission?: Yes Plan: Patient endorses history of gout Currently denies flare up Continue home dose allopurinol (6) EtOH dependence Qualifiers: Substance use status: uncomplicated Qualified Code(s): F10.20 - Alcohol dependence, uncomplicated Is this a current diagnosis for this admission?: Yes Plan: Patient admits to drinking 1/5 liquor per day (approx. 750mL) Scheduled PO thaimine and folate PRN ativan for agitation and/or ETOH withdrawal - Time Time Spent with patient: 15-24 minutes Medications reviewed and adjusted accordingly: Yes Anticipated discharge: Home Within: within 48 hours - Inpatient Certification Based on my medical assessment, after consideration of the patient's comorbidities, presenting symptoms, or acuity I expect that the services needed warrant INPATIENT care.: Yes I certify that my determination is in accordance with my understanding of Medicare's requirements for reasonable and necessary INPATIENT services [42 CFR 412.3e].: Yes Medical Necessity: Risk of Complication if Not Cared For in Hospital - Plan Summary Plan Summary: PLAN FOR STRESS TEST TOMORROW. CARDIOLOGY CONSULTED. IF STRESS TEST NORMAL, PLAN TO D/C HOME WITH CARDIOLOGY FOLLOW UP.
[2017-10-27] MEDS ORDERED: LOPERAMIDE HCL 2 MG CAPSULE PO ONE (20:30)
[2017-10-27] MEDS: THIAMINE HCL 100 MG TABLET PO SCH (20:52)
[2017-10-27] MEDS: FOLIC ACID 1 MG TABLET PO SCH (20:52)
[2017-10-27] MEDS: TOPIRAMATE 25 MG TABLET PO SCH (20:53)
[2017-10-27] MEDS: BUDESONIDE/FORMOTEROL 160-4.5 MCG 60 PUFF/6 GM MDI IH SCH (20:56)
[2017-10-27] MEDS ORDERED: ATORVASTATIN CALCIUM 40 MG TABLET PO SCH (22:00)
--- NOTE | 2017-10-27 23:50 | CONSULTATION REPORT E ---
Consultation Report NAME: TARAS JAMESON : 1960 AGE: 57Y DATE: 10/27/2017 404 B TO: MEREDITH STAHL M.D. FROM: MAGNOLIA RIVERA M.D. Requesting Physician REASON FOR CONSULTATION: Chest pain in a patient with multiple coronary artery disease risk factors. HISTORY: The patient is a 57-year-old male with a history of hyperlipidemia, hypertension, exercise induced asthma and anxiety and depression who states that yesterday morning while at work, he had a cramping pain in the front of the chest with radiation to his throat, his neck, and his jaw. He also had some difficulty swallowing at the time. He felt short of breath but he was anxious. He did have some palpitations along with that but there was no dizziness or syncope. His symptoms lasted for 30-45 minutes. His EKG is within normal limits and his cardiac exams have been negative but still, the patient is very anxious to be sure that he does not have underlying coronary artery disease. He denies any PND or orthopnea. He is pretty active. He states that he has intermittent palpitations lasting a few minutes. Note that the patient states he has had similar chest cramping with radiation to the throat in the past but they lasted only a few minutes but this time, it was very intense and lasted for over 30-45 minutes. As mentioned earlier, he has intermittent episodes of palpitations, lasting a few minutes without any associated symptoms but this time, the patient with a prolonged episode of chest pain had some palpitations. He is not able to tell whether he had a rapid, fast heartbeat or whether there were skipped beats. There are no TIA or CVA symptoms. PAST MEDICAL HISTORY: Positive for history of hypertension, history of hyperlipidemia. There is no prior history of DC or anginal symptoms. There is no history of congestive heart failure. There are palpitations but no documented arrhythmia. He has a history of exercise induced asthma. He has a history of Crohn's disease and the patient states recently this has been active. He also has history of hiatal hernia and he has a history of gout. He also has a history of anxiety and depression. SOCIAL HISTORY: The patient has never smoked. He does take alcohol about daily but he states he has not had any withdrawal symptoms and he does not have any craving for alcohol. FAMILY HISTORY: Positive for coronary artery disease, premature, in his brothers and in his father. ADVANCE DIRECTIVE: The patient is a FULL CODE. His is the surrogate healthcare decision maker. ALLERGIES: 1. TRAZODONE 2. SNAKE BITE ANTIVENOM. MEDICATIONS: 1. Albuterol sulfate 2 puffs inhalation q. 4 hours p.r.n. 2. Allopurinol 300 mg p.o. daily. 3. Aspirin 81 mg p.o. daily. 4. Lipitor 40 mg p.o. at bedtime. 5. Symbicort HFA 160/4.5 mcg inhaler q. 12 hours. 6. Cyanocobalamin 1000 mcg p.o. daily. 7. Vitamin D2 at 50,000 units p.o. once a week. 8. Folic acid 1 mg p.o. at h.s. 9. Hydralazine 10 mg IV q. 4 hours p.r.n. 10. Lansoprazole 30 mg p.o. q. 6:00 a.m. 11. Loperamide 2 mg p.o. q. 4 hours. 12. Losartan 50 mg p.o. daily. 13. Nitroglycerin 1 tablet sublingual q. 5 minutes p.r.n. 14. Thiamine 100 mg p.o. at bedtime. 15. Topamax 25 mg tablet 50 MB p.o. q. 12 hours. 16. Effexor XR 150 mg p.o. daily. REVIEW OF SYSTEMS: CONSTITUTIONAL: Denies any fevers, chills or rigors. Denies any fatigue or generalized weakness. HEAD: He has a history of migraine but no recent headaches. No history of dizziness. EYES: No history of amblyopia or diplopia. No history of amaurosis fugax. EARS: No history of tinnitus. No history of hearing loss. No history of recurrent ear infections. NOSE: No history of hay fever. No history of nosebleeds. No history of nasal polyps. MOUTH: No altered taste sensation. No ulcers in the mouth. No bleeding from the gums. THROAT: No history of odynophagia or dysphagia. No history of recurrent sore throats. SKIN: No history of pruritus. No history of yellowish discoloration of the skin. No psoriasis. No history of skin cancer. NECK: No painful or painless swelling in the neck. No lymphadenopathy. No goiter. LUNGS: History of exercise induced asthma present. No history of COPD or sleep apnea. Patient is a nonsmoker. No pleuritic chest pain. No hemoptysis. No history of pulmonary embolism. No definite history of sleep apnea. No symptoms suggestive of upper respiratory tract infection or lower respiratory tract infection. No cough. CARDIAC: History of hypertension. History of chest pain, as mentioned earlier. The patient has multiple risk factors for coronary artery disease. No history of congestive heart failure. History of palpitations present. No history of PND, orthopnea, syncope or near syncope. No history of pedal edema. No history of congenital heart disease. No history of rheumatologic fever. GASTROINTESTINAL: History of Crohn's disease. The patient states he has been having some mucus diarrhea off and on since the past week so he thinks he has flared up of Crohn's disease. He also has history of hiatal hernia and GERD symptoms which is different from the chest pain that brought him in. He gets GI heartburn if he eats spicy food. There is no history of fatty food intolerance. No history of hepatitis. No history of jaundice. No history of altered bowel movements except for the mucus diarrhea for the past week. No history of hematemesis, melena or hematochezia. Appetite is reasonably good. METABOLIC: History of mild obesity present. History of hyperlipidemia present. History of gout present. ENDOCRINE: No history of diabetes mellitus. No history of thyroid disease. No history of polydipsia or polyuria. No history of heat or cold intolerance. MUSCULOSKELETAL: Denies arthritis or collagen-vascular disease. RENAL: No history of chronic kidney disease. No symptoms of enlarged prostate. No history of hematuria, pyuria or dysuria. No symptoms of UTI. CENTRAL NERVOUS SYSTEM: No history of TIA or CVA. No history of seizures. History of migraines present. No recent attacks. The patient is on Topamax for this. No history of sleep apnea. No history of gait imbalance. PSYCHIATRIC: History of anxiety and depression present. No suicidal ideation. No history of homicidal ideation. VASCULAR: No history of calf or buttocks claudication. No DVT. HEMATOLOGICAL: No history of bleeding diathesis or clotting disorders. PAST SURGICAL HISTORY: Positive for: 1. Appendectomy. 2. Tonsillectomy. 3. Orthopedic surgery on his left foot. PHYSICAL EXAMINATION: GENERAL: The patient is mildly obese, in no acute distress. He is well groomed. VITAL SIGNS: He is afebrile with a temperature of 97.6 degrees Fahrenheit. Pulse is 57 beats per minute. Blood pressure 139/85. Respirations are 16 per minute. O2 sats are 99% on room air. HEENT: Head is atraumatic and normocephalic. Eyes: Pupils are equal, round, regular, reactive to light and accommodation. Extraocular movements are normal. There is no conjunctival pallor. There is no scleral icterus. Ears: Tympanic membranes are intact. External auditory canals are clear. Nose: There is no deviated nasal septum. There is no inflammation of the nasal mucous membranes. Mouth: Mucous membranes of the mouth are moist. Tongue is moist. There are no ulcers. There is no bleeding from the gums. Throat: There is no redness of the oropharynx. There are no exudates. SKIN: There are no skin rashes. There is no petechia or ecchymosis. There are no skin lesions. NECK: Supple. There is no JVD. Carotids are equal. There is no bruit. There is no lymphadenopathy. There is no goiter. There is no JVD. Trachea central. LUNGS: Clear to auscultation and percussion. There is no chest wall tenderness. HEART: S1 and S2 is heard. There is no S3 gallop. There is no S4 gallop. There is a systolic murmur in the left sternal border on the apex. There is no rub. ABDOMEN: Soft, slightly obese, nontender. There is no hepatosplenomegaly. Bowel sounds are well heard. There are no tender areas or masses. EXTREMITIES: Femorals are well felt. Leg pulses are well felt. There are no femoral bruits. There is no pedal edema. There is no DVT or cellulitis. There is no calf tenderness. There is no cyanosis or clubbing. Capillary refill is normal. CENTRAL NERVOUS SYSTEM: The patient is conscious, awake, alert, and oriented x3 with no focal deficits. PSYCHIATRIC: The patient's judgment and insight are intact. His affect is normal. CORONARY RISK FACTORS: Patient's age, hypertension, hyperlipidemia, and a family history of premature coronary artery disease. DIAGNOSTICS: The patient's EKG done on admission is within normal limits. The patient's EKG done this morning is unchanged and within normal limits. The patient's chest x-ray is negative for any acute process. Note that the chest x-ray and EKG were reviewed and interpreted by me. The patient's white count is 6700; hemoglobin 13.4; hematocrit is 38.5; and his platelet count is 239,000. The patient's sodium is 140.7, potassium 3.7, chloride is 104, CO2 is 28, the patient's BUN is 23, creatinine is 1.01, GFR is greater than 60, his glucose is 100, his calcium is 8.8, his phosphorus is 3.6. His troponin I is negative x4 and his CPK-MB are negative x3. His AST is 74, his ALT is 121, his alk phos is 130, and his creatinine kinase is 176. His total protein is 7.3, albumin is 4.1. The patient's triglycerides are elevated at 280, his total cholesterol is 244.78, his LDL cholesterol is elevated at 111, his HDL cholesterol is good at 85. IMPRESSION: 1. Chest pain. No definite evidence of DC at present. 2. Multiple CAD risk factors, namely age, hypertension, hyperlipidemia, and family history of premature coronary artery disease. 3. Hypertension. 4. Hyperlipidemia. 5. Hypertriglyceridemia. 6. History of Crohn's disease. 7. Abnormal liver function test, most likely secondary to alcohol. 8. History of alcohol ? abuse. Patient does have alcohol dependence. RECOMMENDATIONS: Agree with the current treatment, including aspirin and his ARB. Continue his loperamide and lansoprazole. Continue thiamine and his antidepressant and his migraine medications. Would recommend that the patient use his inhalers p.r.n. as the patient has exercise induced asthma. Would strongly recommend and also patient is very much desirous and anxious to have a stress test done. The patient is unable to exercise due to his prior orthopedic surgery in the left foot/leg and hence, we will schedule the patient for an IV Lexiscan Cardiolite stress test. The procedure and benefits and risks of stress test were discussed with the patient. His medications have been reviewed. Note, medical decision making is of moderate to high complexity. Discussed with other care-giving providers on the case. TIME SPENT: Note that the patient was seen at 8:00 a.m. this morning. A total of 55 minutes was spent on this patient with more than 50% of the time spent on direct patient care. We will follow with you. DICTATING PHYSICIAN: MEREDITH STAHL M.D. [id number] PHY#: [id number] ID: [id number] JOB#: [id number] ACCT: [id number] cc:MEREDITH STAHL M.D. >
[2017-10-28] MEDS ORDERED: LANSOPRAZOLE 30 MG TAB.RAP.DR PO SCH (06:00)
[2017-10-28 06:14] LABS: HEMATOCRIT 41.6 % (37.9-51.0); HEMOGLOBIN 14.4 g/dL (13.5-17.0); MEAN CORPUSCULAR HEMOGLOBIN 32.8 pg (27.0-33.4); MEAN CORPUSCULAR HGB CONC 34.6 g/dL (32.0-36.0); MEAN CORPUSCULAR VOLUME 95 fl (80-97); PLATELET COUNT 263 10^3/uL (150-450); RED BLOOD COUNT 4.38 10^6/uL (4.35-5.55); RED CELL DISTRIBUTION WIDTH 14.6 % (11.5-14.0); WHITE BLOOD COUNT 7.1 10^3/uL (4.0-10.5)
[2017-10-28 06:37] LABS: BLOOD UREA NITROGEN 15 mg/dL (7-20); CALCIUM 9.3 mg/dL (8.4-10.2); GLUCOSE 108 mg/dL (75-110)
[2017-10-28 06:38] LABS: ANION GAP 6 (5-19); CARBON DIOXIDE 33 mmol/L (22-30); CHLORIDE 103 mmol/L (98-107); PHOSPHORUS 4.1 mg/dL (2.5-4.5); POTASSIUM 4.5 mmol/L (3.6-5.0); SODIUM 142.4 mmol/L (137-145)
[2017-10-28] MEDS: LORAZEPAM 1 MG TABLET PO PRN (09:52)
[2017-10-28] MEDS ORDERED: LOSARTAN POTASSIUM 50 MG TABLET PO SCH (10:00)
[2017-10-28] MEDS ORDERED: ALLOPURINOL 300 MG TABLET PO SCH (10:00)
[2017-10-28] MEDS ORDERED: CYANOCOBALAMIN (VITAMIN B-12) 1,000 MCG TABLET PO SCH (10:00)
[2017-10-28] MEDS ORDERED: VENLAFAXINE HCL 75 MG CAP.SR.24H PO SCH (10:00)
[2017-10-28] MEDS ORDERED: ERGOCALCIFEROL (VITAMIN D2) 50000 UNIT (1.25 MG) CAPSULE PO SCH (10:00)
[2017-10-28] MEDS: TOPIRAMATE 25 MG TABLET PO SCH (12:31)
[2017-10-28] MEDS: BUDESONIDE/FORMOTEROL 160-4.5 MCG 60 PUFF/6 GM MDI IH SCH (12:36)
[2017-10-28] MEDS: ASPIRIN 81 MG TABLET, ENT COATED PO SCH (12:37)
[2017-10-28] MEDS ORDERED: REGADENOSON INJ 0.4 MG/5 ML DISP.SYRIN IV ONE (13:24)
--- NOTE | 2017-10-28 14:27 | RADIOLOGY REPORT (SQ) ---
EXAM DESCRIPTION: FOOT LEFT COMPLETE COMPLETED DATE/TIME: 10/28/2017 12:17 pm REASON FOR STUDY: foot pain COMPARISON: Left foot films 09/26/2016, 04/22/2017, 06/05/2017 NUMBER OF VIEWS: Three views. TECHNIQUE: AP, lateral and oblique radiographic images acquired of the left foot. LIMITATIONS: None. FINDINGS: MINERALIZATION: Normal. 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 There is fracture of the proximal screw anchoring the plate at the osteotomy. Remote prior partial resection of the medial aspect 1st metatarsal head from bunion corrective surger y. Old healed osteotomy with anchoring surgical staple at the base 1st toe proximal phalanx. JOINTS: No effusions. SOFT TISSUES: No soft tissue swelling. No foreign body. OTHER: No other significant finding. 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 There is failure of the proximal screw anchoring the fixation plate at the osteotomy TECHNICAL DOCUMENTATION: JOB ID: [id number] [employer]- All Rights Reserved Reading location - IP/workstation name: [email or web address]
[2017-10-28 16:03] VITALS: BP 134/80
--- NOTE | 2017-10-28 22:45 | PROGRESS NOTE E ---
Progress Note NAME: TARAS JAMESON : 1960 AGE: 57Y DATE: 10/28/2017 ROOM: 404 SUBJECTIVE: The patient denies any chest pain or discomfort. There is no PND or orthopnea. There is no shortness of breath. There are no palpitations. There is no leg edema. There is no PND or orthopnea. There are no TIA or CVA symptoms. His anxiety and depression seem to be under good control. The patient has no symptoms of GERD today. OBJECTIVE: GENERAL: The patient is mildly obese, in no acute distress. He is well-built. VITAL SIGNS: He is afebrile, with a temperature of 98.2 degrees Fahrenheit. His pulse is 71 beats per minute, blood pressure of 136/89, respirations 16 per minute. O2 sats are 99% on room air. HEENT: Head is atraumatic, normocephalic. Eyes: Pupils equal, round, regular, reactive to light and accommodation. Extraocular movements are normal. There is no conjunctival pallor. There is no scleral icterus. ENT is negative. NECK: Supple. There is no JVD. Carotids are equal. There is no bruit. There is no lymphadenopathy. There is no goiter. Trachea is central. LUNGS: Clear to auscultation and percussion. CHEST: There is no chest wall tenderness. There are no rhonchi, rales or wheezing. HEART: S1, S2 are heard. There is no S3 gallop. There is no S4 gallop. There is a systolic murmur at the left sternal border, at the apex. There is no rub. ABDOMEN: Soft, nontender. There is no hepatosplenomegaly. Bowel sounds are well-heard. There are no tender areas or masses. EXTREMITIES: Femorals are well-felt. There are no femoral bruits. Leg pulses are well-felt. There is no pedal edema. There is no DVT or cellulitis. There is no calf tenderness. There is no cyanosis or clubbing. Capillary refill is normal. CONCRETE MIXER: The patient is conscious, awake, alert, oriented x3 with no focal deficits. PSYCHIATRIC: The patient's judgment and insight are intact. His affect is normal. LABORATORY DATA: The patient's white count is 7100, hemoglobin 14.4, platelet is 263,000. The patient's sodium is 142.4, potassium 4.5, chloride 103, CO2 is 33. The patient's BUN is 15, creatinine is 1.07. GFR is greater than 60. Glucose is 108. His calcium is 9.3. His phosphorus is 4.1. Magnesium is 2.1. The patient had an IV Lexiscan Cardiolite stress test, which showed no Lexiscan-induced EKG changes. There was no reversible ischemia or NJ or scar. This has been discussed with patient. IMPRESSION: 1. CHEST PAIN. No evidence of cardiac enzyme leak; that is, no evidence of non-ST elevation NJ, and normal EKG. Negative stress test by ischemia or scar. Most likely, the symptoms are from GERD. 2. Hypertension. 3. Hyperlipidemia. 4. Hypertriglyceridemia. 5. History of Crohn's disease. 6. Abnormal liver function tests, most likely related to alcohol. 7. History of alcohol, questionable abuse. Patient does have alcohol dependence, but there are no symptoms of withdrawal. 8. Depression. 9. Anxiety. The anxiety and depression seem to be well-controlled with medication. RECOMMENDATIONS: Would recommend *------* the patient on current medication, including aspirin. I have discussed the patient's abnormal liver function tests and advised the patient and counseled him to refrain from/exhibit abstinence from alcohol. Ill effects of alcohol have been discussed, including the damage to the liver, which may become irreversible and lead to cardiomyopathy and also cirrhosis of the liver. Would not start the patient's statin until the patient's liver function tests are normal. The patient has been recommended to contact the [place] to set up an appointment for him to have upper GI studies. Note, 35 minutes spent on this patient, with more than 50% of the time spent on direct patient care. His stress test was also discussed in detail. In view of the patient's multiple risks factors, CAD, albeit a negative Cardiolite stress test, would strongly recommend to the patient to follow up with a service unit operator [facility]. The patient will choose the service unit operator [facility] of his liking. Discussed with the hospitalist taking care of the patient. Medical decision-making at present of moderate complexity. Will sign off. Thank you. DICTATING PHYSICIAN: MEREDITH STAHL M.D. [id number] PHY#: [id number] ID: [id number] JOB#: [id number] ACCT: [id number] cc: >
[2017-10-29] MEDS ORDERED: LOPERAMIDE HCL 2 MG CAPSULE PO SCH (10:00)
== END 2017-10-28 16:15 | disposition home or self-care (01) ==
LOC: ER 12:48 → EH 16:42 → 4N 19:30
PROVIDERS: ADMIT Internal Medicine; ATTEND Internal Medicine
DX: R07.9 Chest pain, unspecified (principal); I10 Essential (primary) hypertension; E78.5 Hyperlipidemia, unspecified; K50.90 Crohn's disease, unspecified, without complications; M10.9 Gout, unspecified; F10.20 Alcohol dependence, uncomplicated; J45.990 Exercise induced bronchospasm; E66.9 Obesity, unspecified; G43.909 Migraine, unspecified, not intractable, without status migrainosus; R79.89 Other specified abnormal findings of blood chemistry; F41.9 Anxiety disorder, unspecified; K21.9 Gastro-esophageal reflux disease without esophagitis; F32.9 Major depressive disorder, single episode, unspecified; E78.1 Pure hyperglyceridemia; Z79.899 Other long term (current) drug therapy; Z79.82 Long term (current) use of aspirin; Z82.49 Family history of ischemic heart disease and other diseases of the circulatory system; Z90.49 Acquired absence of other specified parts of digestive tract; Z98.890 Other specified postprocedural states; Z68.32 Body mass index [BMI] 32.0-32.9, adult
CPT/HCPCS: 93005 ×2; 99285; 36415 ×3; 87045; 87205; 82553 ×2; 82550; 83735; 84100 ×2; 85025; 85027 ×2; 80048 ×2; 80053; 84484 ×2; 80061; 93017; 71046; 73630; 78452; 93010 ×2; G0378 ×4; A9500; J2785; J3490 ×4; Q9969